=== PATIENT | female | born 1990 | race Caucasian/White ===

== ENCOUNTER 2016-10-06 10:58 | Emergency (ER) | payer OTHER | END 2016-10-06 12:48 | disposition home or self-care (01) | LOC: ER 10:58 | DX: J06.9 Acute upper respiratory infection, unspecified (principal); R05 Cough; Z98.890 Other specified postprocedural states; Z79.899 Other long term (current) drug therapy | CPT/HCPCS: 87400; 96372; 99283-25 ==

== ENCOUNTER 2016-12-29 02:53 | Emergency (ER) | payer OTHER ==
[2016-12-29 03:47] LABS: BASO % 0.4 % (0.1-1.2); EOS # 0.3 10_X3_uL (0.0-0.4); EOS % 4.7 % (0.7-5.8); GRAN # 3.6 10_X3_uL (1.6-6.1); GRAN % 50.3 % (34.0-71.1); HEMATOCRIT 40.8 % (34-45); HEMOGLOBIN 13.3 g/dL (11.2-15.7); LYMPH # 2.5 10_X3_uL (1.2-3.7); LYMPH % 34.4 % (19.3-51.7); MEAN CORPUSCULAR HEMOGLOBIN 29.4 pg (27.0-33.0); MEAN CORPUSCULAR HGB CONC 32.6 g/dL (32.0-36.0); MEAN CORPUSCULAR VOLUME 90.1 fL (79-95); MEAN PLATELET VOLUME 10.6 fl (7.5-11.5); MONO # 0.7 10_X3_uL (0.2-0.9); MONO % 10.2 % (4.7-12.5); PLATELET COUNT 216 x10_3/uL (182-369); RED BLOOD COUNT 4.53 x10_6/uL (3.9-5.2); RED CELL DISTRIBUTION WIDTH 12.7 % (11.7-14.4); WHITE BLOOD COUNT 7.2 x10_3/uL (4.0-10.0)
[2016-12-29 03:50] LABS: URINE BILIRUBIN NEGATIVE (NEGATIVE); URINE BLOOD TRACE (NEGATIVE); URINE GLUCOSE (UA) NORMAL (NORMAL); URINE KETONE NEGATIVE (NEGATIVE); URINE LEUKOCYTE ESTERASE TRACE (NEGATIVE); URINE NITRATE NEGATIVE (NEGATIVE); URINE PROTEIN TRACE (NEGATIVE)
[2016-12-29 04:04] LABS: URINE RBC 0-5 /[HPF] (0-2); URINE WBC 0-5 /[HPF] (0-5)
[2016-12-29 04:04] LABS: ALBUMIN 3.9 gm/dL (3.4-5.0); ALKALINE PHOSPHATASE 57 U/L (50-136); ALT/SGPT 52 U/L (3.5-33.9); AMYLASE 57 U/L (15.62-74.58); AST/SGOT 20 U/L (7.04-26.96); BILIRUBIN,TOTAL 0.27 mg/dL (0.0-1.0); BLOOD UREA NITROGEN 10 mg/dL (7-18); CALCIUM 8.8 mg/dL (8.7-10.7); CARBON DIOXIDE 23 mmol/L (21-32); CREATININE 0.5 mg/dL (0.6-1.3); GLUCOSE,RANDOM 100 mg/dL (70-99); LIPASE 20 U/L (6.75-60.75); POTASSIUM 3.8 mmol/L (3.5-5.1); SODIUM 142 mmol/L (136-145); TOTAL PROTEIN 6.4 gm/dL (6.4-8.2)
[2016-12-29 04:05] LABS: URINE BACTERIA 1+ (NONE SEEN)
== END 2016-12-29 05:15 | disposition home or self-care (01) ==
LOC: ER 02:53
PROVIDERS: General Practice
DX: K80.50 Calculus of bile duct without cholangitis or cholecystitis without obstruction (principal); K80.80 Other cholelithiasis without obstruction; R10.11 Right upper quadrant pain; E66.01 Morbid (severe) obesity due to excess calories; R11.0 Nausea; Z79.899 Other long term (current) drug therapy
CPT/HCPCS: 36415; 80053; 81001; 81025; 82150; 83690; 85025; 99284-25; J8597